=== PATIENT | female | born 1950 | race Caucasian/White ===

== ENCOUNTER 2017-04-10 07:12 | Observation (INO) | payer OTHER ==
[~2017-04-10] VITALS: Ht 160 cm; Wt 63.6 kg
[2017-04-10] VITALS (15 sets, daily range): BP systolic 94–137; BP diastolic 58–82; PULSE 56–87; TEMP 35.9–37.2; O2SAT 96–100; Ht 160 cm; Wt 63.6 kg
[~2017-04-10 07:12] MED LIST: BETA0.053; BIOTCAP2 PO; CALC500C70 PO; CHOL400C7 PO; HYDR-3292 TOP; METR0.754 TOP; MULT-506 PO; NAPR1TAB9 PO; OMEG10007 PO; PRM/45 PO; PRMVC; RTNACR2515; TRAZ1TAB8 PO; VENL150T33 PO; VSC/5 PO
[2017-04-10] MEDS ORDERED: ATOR-26 PO (08:04)
[2017-04-10] MEDS ORDERED: ASPI1TAB2 PO (08:04)
[2017-04-10] MEDS ORDERED: [UNRECOGNIZED DRUG - CODE] PO (08:04)
[2017-04-10] MEDS ORDERED: METO25TA3 PO (08:04)
[2017-04-10] MEDS ORDERED: HEPARIN SOD (PORCINE) 1000 UNIT/ML 10 ML VIAL ONE ×2 (08:11→09:56)
[2017-04-10] MEDS ORDERED: NiCARDipine HCL INJ 2.5 MG/ML 10 ML AMP ONE (08:11)
[2017-04-10] MEDS ORDERED: NITROGLYCERIN/D5W 100MCG/ML 20ML SYR ONE (08:12)
[2017-04-10] MEDS ORDERED: MIDAZOLAM HCL 1 MG/ML 2ML VIAL ONE (08:12)
[2017-04-10] MEDS ORDERED: FENTANYL CITRATE INJ 50 MCG/1 ML 2 ML VIAL ONE (08:12)
--- NOTE | 2017-04-10 08:17 | History & Physical Bridge Note ---
H&P Re-Evaluation Bridge Note: I have examined the patient, reviewed the History & Physical and in the interval since the performance of the History & Physical I have noted the following changes of clinical significance: No changes noted
--- NOTE | 2017-04-10 08:18 | Procedure Note ---
Pre-Mod Sedation Assessment General Date of Moderate Sedation: Apr 10, 2017. Vital Signs: Vital Signs Past 12 Hours Date Time Temp Pulse Resp B/P (MAP) Pulse Ox O2 Delivery O2 Flow Rate FiO2 04/10/17 07:30 36.5 66 18 133/82 100 Room Air Review Cardiovascular: regular rate, rhythm, no edema, no gallop Abdomen: normal bowel sounds, non tender, soft Lungs: chest non-tender, lungs clear Pre-Sedation Airway Assessment Oral Cavity: WNL Short Thick Neck: No Hx of Sleep Apnea: No Smoking Status: Never Smoker Mallampati Classification: Class III ASA Classification: Class III Procedure Planning Contraindications-for Mod Sed: None Yes Notes The planned sedation has been discussed with the patient and consent obtained. I have identified the patient, determined the appropriateness of sedation and have assessed the patient immediately prior to the procedure. All medicine(s) and interventions are by my order.
--- NOTE | 2017-04-10 09:28 | Procedure Note ---
Post-Mod Sedation Assessment General Date of Moderate Sedation Apr 10, 2017. Vital Signs: Vital Signs Past 12 Hours Date Time Temp Pulse Resp B/P (MAP) Pulse Ox O2 Delivery O2 Flow Rate FiO2 04/10/17 07:30 36.5 66 18 133/82 100 Room Air Review - Discharge Criteria Vital Signs Stable: Yes Alert/Oriented/Conversant: Yes Returned to Baseline Mental St: Yes Nausea Absent/Minimal: Yes Pain/Discomfort/Absent/Minimal: Yes Normal/Baseline Respirations: Yes Active Bleeding?: No Pt Received D/C Instructions: N/A Prescriptions Given: None Specific Proced. D/C Criteria Distal Pulses Present (Cardiac: Yes Groin site assessed-Card Cath: Yes Voided Prior To Discharge: N/A Discharged Patients Adult Escort/Transportation: N/A
--- NOTE | 2017-04-10 09:38 | Cardiac Catheterization ---
Procedure Note Procedure Date Apr 10, 2017. Pre-Procedure Diagnosis Positive Stress Test, Cardiothoracic Symptom AUC Score 8 Post-Procedure Diagnosis Severe CAD Procedure(s) Performed Coronary Angiography, Left Heart Cath, Femoral Artery Angiography Employment And Claims Aide Dr. Infante Focused Factory Manager(s) Patti RTR Estimated Blood Loss 8cc Summary of Findings Focal calcification of the ostial LAD with 70% stenosis Hemodynamics Rest Ao: 154/73/106 Final Ao: 154/79/114 LV: 154/0/13 Recommendations management recommendations (Patient remained in prosthetics lab technician for IVUS of LAD and possible PCI) Specimens None Radiation Exposure (mGy) 679 Contrast (mls) 110 Anesthesia Moderate sedation. Start 0832. End 0922. Sedation CHIARA Nash Procedural Complication(s) None Disposition Patient remained in prosthetics lab technician for IVUS of LAD ACC Data Cardiac Status Clinical evaluation leading to the procedure CAD Presntation: Positive Stress Test Anginal Classification: CCS II Heart Failure: No Cardiogenic Shock w/in 24Hrs: No Imaging studies past 6 months: Yes Stress studies past 6 months: Yes Standard Exercise Stress Test: No Stress Echocardiogram: Yes - Positive, Risk/Extent of Ischemia (High) Stress Testing w/SPECT MPI: No Cardiac CTA: No Coronary Anatomy Dominant: Right Left Main (% Stenosis): Normal LAD (% Stenosis): Ostial (Focal calcification with 70% stenosis best visualized in JESSICA caudal view.) D1 (% Stenosis): Normal D2 (% Stenosis): Normal Circumflex (% Stenosis): Normal OM1 (% Stenosis): Normal RCA (% Stenosis): Normal R PDA (% Stenosis): Normal R PL1 (% Stenosis): Normal R PL2 (% Stenosis): Normal AM (% Stenosis): Normal Diagnostic Status: Elective Closure Device Percutaneous Entry Location: Femoral (Unable to pass wire via radial access) Recommendations: management recommendations (IVUS LAD prior to posssible PCI) Intraprocedure Events Significant Dissection: No Perforation: No
[2017-04-10] MEDS ORDERED: CLOPIDOGREL BISULFATE 300 MG TAB PO ONE (10:55)
[2017-04-10] MEDS ORDERED: ACETAMINOPHEN 325 MG TAB PO PRN (11:15)
[2017-04-10] MEDS ORDERED: NITROGLYCERIN 0.4 MG SL PER TAB CHARGE SL PRN (11:15)
[2017-04-10] MEDS ORDERED: ONDANSETRON INJ 2 MG/ML 2 ML VIAL IV PRN (11:15)
[2017-04-10] MEDS ORDERED: SODIUM CHLORIDE 0.9% 1000ML 1,000 ML IV SCH (11:15)
--- NOTE | 2017-04-10 11:17 | Procedure Note ---
Post-Mod Sedation Assessment General Date of Moderate Sedation Apr 10, 2017. Vital Signs: Vital Signs Past 12 Hours Date Time Temp Pulse Resp B/P (MAP) Pulse Ox O2 Delivery O2 Flow Rate FiO2 04/10/17 10:59 67 16 144/84 (104) 95 Room Air 04/10/17 10:49 67 16 165/96 (119) 95 Room Air 04/10/17 07:30 36.5 66 18 133/82 100 Room Air Review - Discharge Criteria Vital Signs Stable: Yes Alert/Oriented/Conversant: Yes Returned to Baseline Mental St: Yes Nausea Absent/Minimal: Yes Pain/Discomfort/Absent/Minimal: Yes Normal/Baseline Respirations: Yes Active Bleeding?: No Pt Received D/C Instructions: N/A Prescriptions Given: None Specific Proced. D/C Criteria Distal Pulses Present (Cardiac: Yes Groin site assessed-Card Cath: Yes Voided Prior To Discharge: N/A Discharged Patients Adult Escort/Transportation: N/A
--- NOTE | 2017-04-10 11:38 | Cardiac Catheterization ---
Procedure Note Procedure Date Apr 10, 2017. Pre-Procedure Diagnosis Positive Stress Test, CAD AUC Score 7 Post-Procedure Diagnosis Severe CAD, Successful PCI Procedure(s) Performed PTCA, Drug Eluting Stent, IVUS Elevator Erector Bryce Maxillofacial Prosthetics Dentist(s) Patti Estimated Blood Loss 20 Medication(s) Fentanyl, Heparin, Nitroglycerin, Versed, Lidocaine 1% Summary of Findings Indication: Positive stress with anterior wall motion abnormality Access: 6Fr Femoral artery Catheters: JL3.5 guide Findings: For full details of coronary angiography please see cath report dictated by Dr. Infante. Found to have a moderate to severe ostial LAD lesions with eccentric calcification. IVUS -- 60-70% ostial stenosis at ostium 20-30% eccentric disease in distal LM (CSA >8) In the setting of anterior wall ischemia on stress decision made to proceed with PCI -- PCI -- Antithrombotic therapy: Heparin, clopidogrel Procedure: LM cannulated with JL3.5 guide Prowater wire passed across ostial LAD lesion into distal vessel Rn Iv Therapy 50 wire placed in circumflex LAD lesion predilated with 2.5 compliant balloon Dilated lesion stented with 3.0 x 15 Xience BRAULIO Repeat IVUS of LAD showed mildly underexpanded mid stent with few few stent struts in LM IVUS of circumflex showed 40-50% narrowing at the ostium LAD stent post-dilated with 3.25 NC balloon Kissing balloon inflation with 3.25 NC balloon in LAD stent, 2.5 compliant balloon at ostium of circumflex. Repeat IVUS showed <30% ostial narrowing Wire removed from circumflex and placed into 1st diagonal Ostial stenosis/LAD stent struts dilated with 2.0 compliant balloon Post procedure SAE 3 flow, stent well expanded with minimal residual stenosis and no apparent cardiac complications. Arterial Closure: TR Band Summary: 1. Severe single vessel coronary artery disease - Eccentric, calcified 70% ostial LAD stenosis 2. Successful PCI of ostial LAD with 3.0 x 15 Xience BRAULIO (post-dilated with 3.25 ) - PTCA of ostial circumflex (kissing balloons), and ostium of 1st diagonal. Recommendations: To PCU for continued monitoring Loaded with Clopidogrel 600 mg in laborer bituminous paving Continue dual-antiplatelet therapy with ASA/Clopidogrel for 1 year Continue statin, beta-loretta, and ASCVD risk factor modification per Dr. Infante Consult cardiac Rehab Hemodynamics Rest Ao: 157/73/106 Final Ao: 166/84/117 LV: 154/13 Recommendations PCI without planned CABG Specimens None Radiation Exposure (mGy) 2291 Contrast (mls) 180 Fluids (cc crystalloids) 233 Drains none Anesthesia moderate (8:39 - 10:49) Procedural Complication(s) None Disposition PCU ACC Data Cardiac Status Clinical evaluation leading to the procedure CAD Presntation: Positive Stress Test Anginal Classification: CCS III Heart Failure: No, NYHA Class: CCS I Cardiogenic Shock w/in 24Hrs: No Cardiac Arrest w/in 24Hrs: No Imaging studies past 6 months: Yes Stress studies past 6 months: Yes Standard Exercise Stress Test: No Stress Echocardiogram: Yes - Positive, Risk/Extent of Ischemia (High) Diagnostic Physician's Name: Oneal Infante DO Status: Elective Closure Device Percutaneous Entry Location: Femoral Closure Device: Mynx Recommendations: PCI without planned CABG PCI Indication: + Stress Test Lesion Segment Name: ostial LAD Culprit Artery: Yes Stenosis Prior to Rx (%): 70 Chronic Total Occlusion: No IVUS: Yes FFR: No Pre-Procedure SAE Flow: 3 Previously Treated Lesion: No Lesion Complexity: High/C Lesion Length (mm): 10 Thrombus Present: No Bifurcation Lesion: Yes Guidewire Across Lesion: Yes Guidewire: Stenosis Post-Procedure (%): 0 Post-Procedure SAE Flow: 3 Device(s) Deployed: Yes Intraprocedure Events Significant Dissection: No Perforation: No
[2017-04-10] MEDS ORDERED: IV FLUIDS COMPLETED PRN (13:00)
[2017-04-10] MEDS: VESICARE - ORDER AWAITING ACTION SCH ×2 (16:00→23:51)
[2017-04-10] MEDS ORDERED: TRAZODONE HCL 100 MG TAB PO SCH (21:00)
[2017-04-11] VITALS: BP 97/54; PULSE 61; TEMP 36.6; O2SAT 98
[2017-04-11 03:36] VITALS: BP 114/70; PULSE 68; TEMP 36.4; O2SAT 98
[2017-04-11 04:00] VITALS: O2SAT 98
[2017-04-11 06:26] LABS: BASO % 0.3 %; BASO ABS # 0.02 K/uL (0-0.2); COMPLETE YES; EOS % 1.8 %; HEMATOCRIT 37.9 % (37-47); IG% 0.2 %; LYMPH % 21.1 %; LYMPH ABS # 1.26 K/uL (1.2-3.4); MEAN CELL VOLUME 88.1 fL (80-100); MEAN CORPUSCULAR HEMOGLOBIN 29.1 pg (25-34); MEAN PLATELET VOLUME 9.7 fL (7.4-10.4); MONO % 8.6 %; PLATELET COUNT 219 K/uL (130-400); WHITE BLOOD COUNT 5.96 K/uL (4.8-10.8)
[2017-04-11 06:52] LABS: CALCIUM 8.4 mg/dl (8.5-10.1); CREATININE 0.72 mg/dl (0.60-1.20); POTASSIUM 3.8 mmol/L (3.5-5.1)
[2017-04-11 07:41] VITALS: BP 100/66; PULSE 68; TEMP 36.5; O2SAT 97
[2017-04-11] MEDS: VESICARE - ORDER AWAITING ACTION SCH (07:46)
[2017-04-11] MEDS ORDERED: CLOPIDOGREL BISULFATE 75 MG TAB PO SCH (09:00)
[2017-04-11] MEDS ORDERED: METOPROLOL SUCC 25MG EXT REL TAB PO SCH (09:00)
[2017-04-11] MEDS ORDERED: ASPIRIN 81 MG ECTAB PO SCH (09:00)
[2017-04-11] MEDS ORDERED: VENLAFAXINE HCL XR 150 MG CAPXR PO SCH (09:00)
[2017-04-11] MEDS ORDERED: ATORVASTATIN 40 MG TAB PO SCH (09:00)
[2017-04-11] MEDS ORDERED: MULTIVITAMIN TAB PO SCH (09:00)
[2017-04-11 10:32] VITALS: BP 100/66; PULSE 68; TEMP 36.5; O2SAT 97
--- NOTE | 2017-04-11 10:36 | Cardiology Follow-Up ---
Subjective General Date of Service: Apr 11, 2017. Pt evaluation today including: conversation w/ patient, conversation w/ family , physical exam, chart review, lab review, review of studies, review of inpatient medication list History of Present Illness The patient is a 67 year old female seen in follow up. Feeling well today. Denies chest pain or shortness of breath. No dysrhythmias on telemetry. Tolerating current medications. Allergies Coded Allergies: Amoxicillin (Unverified Allergy, Severe, ANAPHYLAXIS, 04/10/17) CI Pigment Blue 63 (Unverified Allergy, Mild, ., 04/10/17) "zombie" Duloxetine (Unverified Allergy, Mild, ., 04/10/17) "zombie" Pregabalin (Unverified Allergy, Mild, ., 04/10/17) "zombie" Zolpidem (Unverified Allergy, Mild, ., 04/10/17) "memory loss" Social History Smoking Status: Never Smoker Hx Alcohol Use - Type And Amou: Yes (rarely) Hx Substance Use - Type And Am: No Review of Systems Respiratory: No cough, No wheezing, No shortness of breath, No dyspnea on exertion, No dyspnea at rest, No hemoptysis Cardiac: No chest pain, No orthopnea, No PND, No palpitations Physical Exam Vital Signs Last Vital Signs Documentation Date Time Temp Pulse Resp B/P (MAP) Pulse Ox O2 Delivery O2 Flow Rate FiO2 04/11/17 08:00 Room Air 04/11/17 07:41 36.5 68 18 100/66 (77) 97 Physical Exam Constitutional: General Apperance: heathly-appearing Level of Distress: NAD Ambulation: ambulating normally Head: normocephalic, atraumatic ENMT: normal ENT inspection Neck: supple, trachea midline Lungs: Auscultation: breath sounds normal, no wheezing, no rales/crackles, no rhonchi Cardiovascular: Heart Auscultation: RRR, normal S1, normal S2, no murmurs, no rubs, no gallops Peripheral Pulses: Femoral Pulse: normal on the right Dorsalis Pedis Pulse: normal on the right Musculoskeletal: normal, normal strength (5/5 throughout) Extremities: no cyanosis, no edema, no clubbing, no ulcers Neurologic: Gait & Station: pertinent finding (No focal motor deficit) Cranial Nerves: grossly intact Assessment and Plan Assessment and Plan Final impression: 1. 67-year-old female admitted for observation after cardiac catheterization demonstrating ostial LAD stenosis status post drug-eluting stent implantation. 2. Dyslipidemia Plan/recommendations: Discussed importance of continuing dual antiplatelet therapy uninterrupted for a minimum of 12 months post PCI. Patient voiced understanding. She will also continue Toprol-XL and high-dose atorvastatin. Post catheterization activity restrictions discussed. All questions were answered to her satisfaction. I will see her for outpatient follow-up in 2 weeks. Laboratory Results Last 24 Hours Test 04/11/17 05:56 White Blood Count 5.96 K/uL Red Blood Count 4.30 M/uL Hemoglobin 12.5 g/dL Hematocrit 37.9 % Mean Corpuscular Volume 88.1 fL Mean Corpuscular Hemoglobin 29.1 pg Mean Corpuscular Hemoglobin Concent 33.0 g/dl Platelet Count 219 K/uL Mean Platelet Volume 9.7 fL Neutrophils (%) (Auto) 68.0 % Lymphocytes (%) (Auto) 21.1 % Monocytes (%) (Auto) 8.6 % Eosinophils (%) (Auto) 1.8 % Basophils (%) (Auto) 0.3 % Neutrophils # (Auto) 4.05 K/uL Lymphocytes # (Auto) 1.26 K/uL Monocytes # (Auto) 0.51 K/uL Eosinophils # (Auto) 0.11 K/uL Basophils # (Auto) 0.02 K/uL RDW Standard Deviation 47.5 fL RDW Coefficient of Variation 14.7 % Immature Granulocyte % (Auto) 0.2 % Immature Granulocyte # (Auto) 0.01 K/uL Sodium Level 143 mmol/L Potassium Level 3.8 mmol/L Chloride Level 108 mmol/L Carbon Dioxide Level 30 mmol/L Anion Gap 5.0 mmol/L Blood Urea Nitrogen 14 mg/dl Creatinine 0.72 mg/dl Est Creatinine Clear Calc Drug Dose 67.1 ml/min Estimated GFR () 99.7 Estimated GFR (Non- 86.1 BUN/Creatinine Ratio 19.0 Random Glucose 80 mg/dl Calcium Level 8.4 mg/dl Hepatitis C Antibody Screen NEG
[2017-04-11] MEDS ORDERED: METO25TA3 PO (10:40)
[2017-04-11] MEDS ORDERED: NTRSLP4 SL (10:40)
[2017-04-11] MEDS ORDERED: PLV75 PO (10:40)
--- NOTE | 2017-04-11 10:42 | Discharge Instructions ---
Discharge Instructions Procedure Procedure Date: Apr 11, 2017. Reason for Visit: CAD. Discharge Discharge Date: Apr 11, 2017. Discharge Diagnosis: status post coronary stent to the left anterior descending artery Last Recorded Wt (Kilograms): 63.600 Anesthesia Post Anesthesia Instructions: If you have had General Anesthesia or IV Sedation: * Do not drive today. * Resume driving when surgeon permits. * Do not make important decisions or sign legal documents today. * Call surgeon for: 1. Temperature elevations greater than 101 degrees F. 2. Uncontrollable pain. 3. Excessive bleeding. 4. Persistent nausea and vomiting. 5. Medication intolerance (nausea, vomiting or rash). * For nausea and vomiting use only clear liquids such as: tea, soda, bouillon until nausea subsides, then gradually increase diet as tolerated. * If you have any concerns or questions, call your surgeon's office. If physician is unavailable and it is an emergency, call 911 or go to the nearest emergency room. Instructions Activity Recommendations: limitations as noted below Return to School/Work: with the following limitations Recommended Home Diet: low cholesterol Allergies: Coded Allergies: Amoxicillin (Unverified Allergy, Severe, ANAPHYLAXIS, 04/10/17) CI Pigment Blue 63 (Unverified Allergy, Mild, ., 04/10/17) "zombie" Duloxetine (Unverified Allergy, Mild, ., 04/10/17) "zombie" Pregabalin (Unverified Allergy, Mild, ., 04/10/17) "zombie" Zolpidem (Unverified Allergy, Mild, ., 04/10/17) "memory loss" Provider Instructions ACTIVITY RECOMMENDATIONS: It is common to feel weak and fatigue for a few days. * Do not drive or operate any motorized equipment for the next three days. * Limit stair usage (2 or 3 trips a day only) for the next three days. * Do not lift anything heavier than 10 pounds for the next three days. * Do not engage in vigorous exercise or any sports for the next five days. * You may shower the day after your procedure, but do not immerse the area for three days. Cleanse the site gently with soap and water. SPECIAL CARE INSTRUCTIONS: * You may replace the pressure dressing or band-aid the morning after the procedure. * After your procedure, it is normal to have a small bruise or small lump at the site. Examine your site daily for any change in the bruise or lump, redness, swelling, drainage or numbness. Notify your doctor if any change. BLEEDING: * If there is a small amount of bleeding at the site, lie down and apply firm pressure with a clean cloth for ten minutes. When the bleeding stops, lie quietly keeping the procedure limb straight for six hours. Notify your doctor as soon as possible. * If the bleeding does not stop after ten minutes or if there is a large amount of bleeding or spurting, call 911 immediately. Continue to lie down and hold firm pressure until help arrives. SKIN IRRITATION: * You may experience some redness and/or swelling in the area where radiation was administered. If any skin irritation occurs, please contact your family physician. FOLLOW UP VISIT: Keep any scheduled doctor appointments. Follow Up Follow-up with: Dr. Infante in 2 weeks. office number: [phone] [facility] Recommendations: Call your doctor if: * Temperature above 101 degrees * Pain not relieved by pain medicine ordered * There is increased drainage or redness from any incision * You have any unanswered questions or concerns. Your Doctors Instructions noted above were prepared by provider Oneal Infante. Patient Signature Section: Patient Instructions Signature Page Pari Cabral Patient (or Guardian) Signature/Date: I have read and understand the instructions given to me by my caregivers. Caregiver/RN/Doctor Signature/Date: The above-named patient and/or guardian has received patient instructions on this date. + Original Patient Signature Page (only) stays with chart. Please make copy for patient.
--- NOTE | 2017-04-11 10:50 | Discharge Summary ---
Discharge Summary Dates Admission Date / Time: Apr 10, 2017 at 11:14 Discharge Date: Apr 11, 2017 Dispostion / Condition Discharge Disposition: Home Condition at Discharge: Good Principal Diagnosis (1) CAD (coronary artery disease) Consultations / Procedures Consultations: Interventional cardiology Procedures: Cardiac catheterization demonstrating severe ostial LAD stenosis s/p drug- eluting stent implantation Vaccinations: none Medication Reconciliation New Medications: Clopidogrel Bisulfate (Clopidogrel) 75 Mg Tab 75 MG PO QAM for 90 Days, #90 TAB 4 Refills Nitroglycerin (Nitrostat) 0.4 Mg/1 Tab Subl 0.4 MG SL UD PRN for Chest Pain, #1 BTL 3 Refills Continued Medications: Aspirin (Tee Aspirin Ec Low Dose) 81 Mg Tab 1 TAB PO DAILY for 30 Days, #30 TAB 3 Refills Atorvastatin (Lipitor) 80 Mg Tab 80 MG PO DAILY, TAB Calcium Lactate (Suhail-Lac) 500 Mg Cap 1 CAP PO DAILY Estrogens, Conjugated (Premarin) 14 Appln/30 Gm Cr Estrogens, Conjugated (Premarin) 0.45 Mg Tab 0.45 MG PO DAILY, TAB Metoprolol Succ (Toprol Xl) (Toprol-Xl) 25 Mg Tabcr 25 MG PO DAILY for 30 Days, #30 TAB 6 Refills (This prescription has been renewed) Metronidazole (Topical) (Metrocream) 0.75 % Cre 1 APPLN TOP DAILY, #45 GM 3 Refills Multivitamin (Multivitamin) Tab 1 TAB PO DAILY, TAB Solifenacin (Vesicare) 5 Mg Tab 5 MG PO DAILY, TAB Trazodone Hcl (Desyrel) 100 Mg Tab 1 TAB PO HS for 30 Days, #30 TAB 1 Refill Tretinoin (Retin-A) 0.025 % Cre Venlafaxine Hcl (Venlafaxine Hcl Er) 150 Mg Tab 1 TAB PO DAILY for 30 Days, #30 TAB 1 Refill Admission HPI Per the Admitting provider: Patient underwent exercise stress echocardiography in the outpatient setting. The stress test demonstrated anterior ischemia with reproduction of anginal symptoms. Patient had been treated with beta blockers prior to coronary angiography. Angiogram demonstrated severe ostial LAD stenosis. Drug-eluting stent was implanted without complication. Hospital Course (1) CAD (coronary artery disease) (2) S/P coronary angiogram (3) Status post primary angioplasty with coronary stent (4) Dyslipidemia Total Time Total Time Spent (min): 30 Total Time Includes: examination of the patient, discharge planning, medication reconciliation Discharge Instructions ACTIVITY RECOMMENDATIONS: It is common to feel weak and fatigue for a few days. * Do not drive or operate any motorized equipment for the next three days. * Limit stair usage (2 or 3 trips a day only) for the next three days. * Do not lift anything heavier than 10 pounds for the next three days. * Do not engage in vigorous exercise or any sports for the next five days. * You may shower the day after your procedure, but do not immerse the area for three days. Cleanse the site gently with soap and water. SPECIAL CARE INSTRUCTIONS: * You may replace the pressure dressing or band-aid the morning after the procedure. * After your procedure, it is normal to have a small bruise or small lump at the site. Examine your site daily for any change in the bruise or lump, redness, swelling, drainage or numbness. Notify your doctor if any change. BLEEDING: * If there is a small amount of bleeding at the site, lie down and apply firm pressure with a clean cloth for ten minutes. When the bleeding stops, lie quietly keeping the procedure limb straight for six hours. Notify your doctor as soon as possible. * If the bleeding does not stop after ten minutes or if there is a large amount of bleeding or spurting, call 911 immediately. Continue to lie down and hold firm pressure until help arrives. SKIN IRRITATION: * You may experience some redness and/or swelling in the area where radiation was administered. If any skin irritation occurs, please contact your family physician. FOLLOW UP VISIT: Keep any scheduled doctor appointments. Copies To Primary Care Provider: Corona Samaniego M.D.. Problem Qualifiers (1) CAD (coronary artery disease): Coronary Disease-Associated Artery/Lesion type: viejas artery [place] vs. transplanted heart: viejas heart Associated angina: with unstable angina Qualified Codes: I25.110 - Atherosclerotic heart disease of viejas coronary artery with unstable angina pectoris
== END 2017-04-11 12:00 | disposition home or self-care (01) ==
LOC: C.CATH 07:12 → ENRESERV 10:08 → C.2E 11:14
PROVIDERS: ADMIT Internal Medicine Cardiovascular Disease; ATTEND Internal Medicine Cardiovascular Disease
DX: R07.89 Other chest pain (principal); E78.5 Hyperlipidemia, unspecified; Z82.49 Family history of ischemic heart disease and other diseases of the circulatory system; Z82.3 Family history of stroke; E78.1 Pure hyperglyceridemia; Z79.890 Hormone replacement therapy